=== PATIENT | male | born 1985 | race Caucasian/White ===

== ENCOUNTER 2025-02-10 19:50 | Emergency (ER) | payer MEDICAID ==
[~2025-02-10] VITALS: Ht 165.1 cm; Wt 70.3 kg
[2025-02-10 20:19] VITALS: TEMP 98.6
[2025-02-10] MEDS ORDERED: KETOROLAC TROMETHAMINE INJ 30 MG/ML VIAL ONE (20:53)
[2025-02-10] MEDS ORDERED: ACETAMINOPHEN ES 500 MG TABLET ONE (20:53)
[2025-02-10] MEDS: ACETAMINOPHEN ES 500 MG TABLET PO ONE (21:00)
[2025-02-10] MEDS: KETOROLAC TROMETHAMINE INJ 30 MG/ML VIAL IM ONE (21:00)
[2025-02-10 23:25] VITALS: BP 130/82; O2SAT 97
== END 2025-02-10 22:37 | disposition home or self-care (01) ==
LOC: ER 20:10
DX: S62.667A Nondisplaced fracture of distal phalanx of left little finger, initial encounter for closed fracture (principal); Z60.2 Problems related to living alone; W23.1XXA Caught, crushed, jammed, or pinched between stationary objects, initial encounter; Y93.89 Activity, other specified; Y92.89 Other specified places as the place of occurrence of the external cause; Y99.8 Other external cause status
CPT/HCPCS: 29130; 73140; 96372; 99283; J1885

== ENCOUNTER 2025-02-20 20:42 | Emergency (ER) | payer MEDICAID ==
[~2025-02-20] VITALS: Ht 165.1 cm; Wt 69.4 kg
[2025-02-20 21:28] LABS: PLATELET COUNT (AUTO) 189 K/uL (150-450); RED BLOOD CELL COUNT(AUTO) 4.77 MIL/uL (4.5-6.0); RED CELL DISTRIBUTION WIDTH 13.8 % (11.5-15.0); WHITE BLOOD COUNT (AUTO) 4.8 K/uL (4.3-11.0)
[2025-02-20 21:39] LABS: CALCIUM, SERUM 8.9 mg/dL (8.5-10.1); CREATININE 0.9 mg/dL (0.6-1.3); SODIUM SERUM 140.0 mmol/L (136-145); UREA NITROGEN, BLOOD 19.0 mg/dL (7-18)
[2025-02-20 21:42] LABS: INR 1.02 (0.91-1.10)
[2025-02-20 21:45] LABS: ASPARTATE AMINOTRANSFERASE 13.0 U/L (15-37); TOTAL PROTEIN, SERUM 6.9 g/dL (6.4-8.2)
[2025-02-20] MEDS ORDERED: PANT40TA2 PO (23:12)
[2025-02-20] MEDS ORDERED: DICY10CA37 PO (23:12)
[2025-02-20] MEDS ORDERED: ONDA4TAB5 PO (23:12)
[2025-02-20] MEDS ORDERED: PANTOPRAZOLE 40 MG TABLET.DR PO ONE (23:32)
[2025-02-20] MEDS: PANTOPRAZOLE 40 MG TABLET.DR PO ONE (23:39)
[2025-02-21] VITALS: BP 128/71; TEMP 98.5; O2SAT 96
== END 2025-02-21 | disposition home or self-care (01) ==
LOC: ER 20:45
DX: K62.5 Hemorrhage of anus and rectum (principal); Z79.899 Other long term (current) drug therapy; Z60.2 Problems related to living alone
CPT/HCPCS: 36415; 80048-TC; 80076-TC; 85025-TC; 85730-TC